=== PATIENT | male | born 1995 | race Asian ===

== ENCOUNTER 2020-02-25 13:22 | Emergency (ER) | payer BC ==
[~2020-02-25] VITALS: Ht 167.6 cm; Wt 85.0 kg
[2020-02-25 13:51] VITALS: BP 116/82
[2020-02-25] MEDS ORDERED: IBUPROFEN 800MG TABLET PO ONE (14:15)
== END 2020-02-25 15:09 | disposition home or self-care (01) ==
LOC: ER 13:39
DX: S40.012A Contusion of left shoulder, initial encounter (principal); V00.131A Fall from skateboard, initial encounter; Y93.89 Activity, other specified; Y92.89 Other specified places as the place of occurrence of the external cause; Y99.8 Other external cause status
CPT/HCPCS: 73030; 73060; 99283

== ENCOUNTER → 2020-08-28 | Outpatient (CLI) | payer BC | END | disposition home or self-care (01) | LOC: RAD 14:41 | DX: S93.432A Sprain of tibiofibular ligament of left ankle, initial encounter (principal); S93.422A Sprain of deltoid ligament of left ankle, initial encounter; S93.492A Sprain of other ligament of left ankle, initial encounter; X58.XXXA Exposure to other specified factors, initial encounter; Y93.89 Activity, other specified; Y92.89 Other specified places as the place of occurrence of the external cause; Y99.8 Other external cause status | CPT/HCPCS: 73721 ==

== ENCOUNTER 2021-03-22 14:11 | Emergency (ER) | payer BC ==
[~2021-03-22] VITALS: Ht 172.7 cm; Wt 87.0 kg
[2021-03-22 14:26] VITALS: BP 145/99
[2021-03-22] MEDS ORDERED: BACITRACIN ZINC OINT UDPKT TOP ONE (16:15)
[2021-03-22] MEDS ORDERED: IBUP-2029 PO (16:49)
[2021-03-27] MEDS ORDERED: HYDR-4005 PO (13:16)
== END 2021-03-22 17:25 | disposition home or self-care (01) ==
LOC: ER 14:11
DX: S82.831A Other fracture of upper and lower end of right fibula, initial encounter for closed fracture (principal); S82.891A Other fracture of right lower leg, initial encounter for closed fracture; S90.511A Abrasion, right ankle, initial encounter; V00.131A Fall from skateboard, initial encounter; Y93.51 Activity, roller skating (inline) and skateboarding; Y92.89 Other specified places as the place of occurrence of the external cause; Y99.8 Other external cause status
CPT/HCPCS: 73600; 99283

== ENCOUNTER → 2021-03-27 | Day surgery (SDC) | payer BC ==
[~2021-03-27] VITALS: Ht 170.2 cm; Wt 86.2 kg
[~2021-03-27] MED LIST: CEFAZOLIN SODIUM 1000MG/VIAL ONE; DEXAMETHASONE 4MG/ML 1ML VIAL ONE; FENTANYL CITRATE/PF 50MCG/ML 2ML VIAL IV PRN; FENTANYL CITRATE/PF 50MCG/ML 2ML VIAL ONE; HYDR-4005 PO; HYDRALAZINE 20MG/ML VIAL IV NR; HYDROCODONE/ACETAMINOPHEN 5/325MG TABLET PO PRN; HYDROMORPHONE HCL/PF 2MG/ML (OR) ONE; IBUP-2029 PO; KETOROLAC 30MG/ML VIAL IV ONE; LABETALOL 5MG/ML SYR 20 MG/4 ML SYRINGE IV PRN; LACTATED RINGERS 1,000 ML IV SCH; LIDOCAINE HCL/EPINEPHRINE 1%-EPI 1:100,000 20 ML VIAL ONE; LIDOCAINE HCL/PF 1% 10 MG/ML 5ML VIAL ONE; MEPERIDINE HCL/PF 25MG/ML CPJ IV PRN; MIDAZOLAM HCL 2 MG/2 ML VIAL ONE; ONDANSETRON HCL 4MG/2ML INJ IV PRN; ONDANSETRON HCL 4MG/2ML INJ ONE; POLYMYXIN B SULFATE 500000 UNITS/VIAL ONE; PROPOFOL 200MG/20ML VIAL IV ONE; ROPIVACAINE HCL 10MG/ML 20 ML VIAL EPI ONE; SODIUM CHLORIDE 0.9% 10ML VIAL ONE; VANCOMYCIN HCL 1 GM/VIAL ONE
[2021-03-27 11:32] LABS: BASOPHILS % 0.3 % (0.0-2.0); EOSINOPHILS % 0.7 % (0.0-5.0); HEMATOCRIT. 43.8 % (42.0-52.0); HEMOGLOBIN. 15.6 g/dL (14.0-18.0); LYMPHOCYTES % 18.9 % (20.0-50.0); MEAN CORPUSCULAR HEMOGLOBIN 32.1 pg (28.0-32.0); MEAN PLATELET VOLUME 8.1 fl (7.4-10.4); MONOCYTES % 7.8 % (2.0-8.0); NEUTROPHILS % 72.3 % (40.0-76.0); PLATELET 274 x1000/uL (130-400); RED BLOOD CELL COUNT 4.87 mill/uL (4.7-6.1); RED CELL DISTRIBUTION WIDTH 11.7 % (11.6-14.6)
[2021-03-27 11:43] LABS: CHLORIDE 106 mEq/L (98-107)
[2021-03-27 11:44] LABS: INR 1.1; PARTIAL THROMBOPLASTIN TIME 30.9 sec (23.4-31.0); PROTHROMBIN TIME 11.6 sec (9.6-11.0)
[2021-03-27] MEDS: HYDROMORPHONE HCL/PF 2MG/ML CPJ IV PRN ×5 (15:09→15:39)
[2021-03-27 16:54] VITALS: BP 154/95
== END | disposition home or self-care (01) ==
LOC: OR 10:54
DX: S82.61XA Displaced fracture of lateral malleolus of right fibula, initial encounter for closed fracture (principal); S93.421A Sprain of deltoid ligament of right ankle, initial encounter; Z79.899 Other long term (current) drug therapy; Z98.890 Other specified postprocedural states; Z20.822 Contact with and (suspected) exposure to COVID-19; X58.XXXA Exposure to other specified factors, initial encounter; Y93.89 Activity, other specified; Y92.89 Other specified places as the place of occurrence of the external cause; Y99.8 Other external cause status
CPT/HCPCS: 27695; 27792; 36415; 73600; 76000; 80053; 85025; 85610; 85730; 87426; 93005; J0360; J0690; J1100; J1170; J1885; J2250; J2405; J2704; J2795; J3010; J3370; J3490